=== PATIENT | male | born 1995 | race Caucasian/White ===

== ENCOUNTER 2017-08-26 14:29 | Emergency (ER) | payer MEDICAID ==
[~2017-08-26] VITALS: Ht 167.6 cm; Wt 100.0 kg
[2017-08-26] MEDS ORDERED: SODIUM CHLORIDE 0.9% 1,000 ML IV ONE (17:41)
[2017-08-26] MEDS ORDERED: VISCOUS LIDOCAINE 2% 15 ML UDC PO STA (17:41)
[2017-08-26] MEDS ORDERED: ACETAMINOPHEN 325MG TABLET PO STA (17:41)
[2017-08-26] MEDS ORDERED: DICYCLOMINE 10 MG/5 ML ORAL SYR PO STA (17:41)
[2017-08-26] MEDS ORDERED: MAGNESIUM/ALUMINUM HYDROXIDE/SIMETHICONE 30ML UDC PO STA (17:41)
[2017-08-26] MEDS ORDERED: KETOROLAC 30MG/ML VIAL IV STA (17:41)
[2017-08-26] MEDS ORDERED: ONDANSETRON 4MG/5ML UDC PO ONE (18:00)
[2017-08-26 19:04] VITALS: BP 115/67
== END 2017-08-26 19:10 | disposition home or self-care (01) ==
LOC: ER 18:20
DX: J02.8 Acute pharyngitis due to other specified organisms (principal)
CPT/HCPCS: 87070; 87430; 96361; 96374; 99284; J1885; J7030; Q0162